=== PATIENT | male | born 2000 | race Caucasian/White ===

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

== ENCOUNTER 2019-01-02 22:33 | Inpatient (IN) ==
[2019-01-02 22:59] LABS: Appearance Urine Clear (Clear); Bilirubin Urine Negative (Negative); Blood Urine Negative (Negative); Color Urine Yellow; Glucose Urine UA Negative (Negative); Ketones Urine Trace (Negative); Leukocyte Esterase Urine Negative (Negative); Nitrite Urine Negative (Negative); Protein Urine Negative (Negative); Specific Gravity Urine 1.027 (1.000-1.030); Urobilinogen Urine Negative (Negative); pH Urine 6.5 (4.5-7.5)
[2019-01-02 23:23] LABS: Amphetamines+Metham, Urine Neg (Neg); Barbiturates, Urine Neg (Neg); Benzodiazepine, Urine Neg (Neg); Cocaine, Urine Neg (Neg); MDMA (Ecstacy), Urine Neg (Neg); Methadone, Urine Neg (Neg); Opiate, Urine Neg (Neg); Phencyclidine, Urine Neg (Neg)
[2019-01-02 23:30] LABS: Basophils # (auto) 0.02 K/uL (0-0.2); Basophils % (auto) 0.2 %; Eosinophils # (auto) 0.14 K/uL (0-0.5); Eosinophils % (auto) 1.7 %; Hematocrit (blood only) 38.9 % (42-52); Hemoglobin 13.8 g/dL (14.0-18.0); Immature Granulocytes # (auto) 0.02 K/uL (0.00-0.02); Immature Granulocytes % (auto) 0.2 %; Lymphocytes # (auto) 2.86 K/uL (1.2-3.4); Mean Corpuscular Hemoglobin 30.3 pg (25-34); Mean Corpuscular Hgb Conc 35.5 g/dL (32-36); Mean Corpuscular Volume 85.5 fL (80-100); Monocytes # (auto) 0.64 K/uL (0.11-0.59); Monocytes % (auto) 7.6 %; Neutrophils # (auto) 4.74 K/uL (1.4-6.5); Neutrophils % (auto) 56.3 %; Platelet Count 272 K/uL (130-400); RDW Coefficient of Variation 12.9 % (11.5-14.5); Red Blood Count 4.55 M/uL (4.7-6.1); White Blood Count 8.42 K/uL (4.8-10.8)
[2019-01-02 23:48] LABS: Albumin Level 3.4 gm/dl (3.4-5.0); BUN Creatinine Ratio 16.8 (10-20); Calcium 8.6 mg/dl (8.5-10.1); Creatinine Clr Calc Pharmacy 178.8 ml/min; Est GFR (Non-African American) 115.6; Potassium 3.4 mmol/L (3.5-5.1)
[2019-01-02 23:58] LABS: Bilirubin,Total 0.2 mg/dl (0.2-1); Globulin 3.5 gm/dl (2.5-4.0); Thyroid Stimulating Hormone 3.99 uIu/ml (0.300-4.500); Total Protein 6.9 gm/dl (6.4-8.2)
[2019-01-03 00:41] LABS: Acetaminophen < 2 ug/ml (10-30); Salicylate < 1.7 mg/dl (2.8-20)
[2019-01-03] MEDS ORDERED: LORazepam 1 MG TAB SL STA (01:23)
--- NOTE | 2019-01-03 05:06 | Emergency Department Note ---
Entered by Lanny Lundberg acting as a scribe for Larisa Boone DO History of Present Illness General Chief complaint: Mental Health Evaluation Stated complaint: MENTAL HEALTH EVAL Time Seen by Provider: 01/03/19 00:17 Source: patient History of Present Illness Onset (ago): hour(s) (several ) Location: head (general ) Severity: similar to prior episodes Pain Consistency: + other (worsening ) Maximum Pain Intensity: 0 Quality: + other (depression) Associated symptoms: + other (positive thoughts of hurting self; positive thoughts of overdosing; negative change in bowel movements; negative change in appetite; negative change in sleep ); no headaches The patient is a 18 year old male with a PMHx of anxiety and depression who presents to the Emergency Room with complaints of worsening depression that began several hours prior to arrival. The patient states that he bought some sleeping pills today as he has been thinking about hurting himself more recently. The patient states that this is similar to prior episodes of thoughts of hurting himself, but states that he has never made any action to hurt himself. He states that he is unsure if he would have taken these sleeping pills tonight, but states that he has had recent thoughts of overdosing. The patient states that he recently told his friends that he was struggling with his symptoms and states that they are concerned about him. He states that he was previously hospitalized for thoughts of getting a firearm from his grandfather's cabin. The patient states that he is currently on Prozac for his anxiety and depression, and states that he believes this is working. The patient denies any changes in dose of his Prozac. He states that he is about 6 months into hormone therapy for transitioning and is doing well with this, and states that he has a good relationship with his family. The patient denies headache, change in bowel movements, change in appetite, and change in sleep. He reports occasional use of alcohol and vapes, but denies use of drugs. Home Medications Home Medications Medication Instructions Recorded Confirmed Type estradiol 0.1 mg TRANSDERMAL 2XWK 07/14/18 01/02/19 History spironolactone 100 mg PO DAILY 07/14/18 01/02/19 History fluoxetine 40 mg PO QAM #30 cap 03/22/19 09/04/19 Rx Allergies Allergy/AdvReac Type Severity Reaction Status Date / Time No Known Allergies Allergy Unverified 07/14/18 13:32 Past Med/Surg History Medical History Anxiety, generalized History of hormone replacement therapy Depression Surgical History History of appendectomy Social History Preferred Language: Irish Communication Ability: Effective Heel Scorer Required: No Beliefs That Will Affect Care: None current occupational status: student Feels Safe at Home: Yes Smoking Status: Current some day smoker Tobacco Type: e-cigarettes ; Review of Systems See HPI for pertinent positives & negatives. and A total of 10 systems reviewed and were otherwise negative Physical Exam Vital Signs Vital Signs - 24 hr 01/02/19 22:35 01/03/19 01:29 Temperature 36.6 C Temperature Source Oral Sepsis Recent Fever Within 48 Hours No Sepsis Action Taken by Nursing No Action Required Pulse Rate 97 H Pulse Rate [Finger] 70 Respiratory Rate 18 20 Respiratory Effort / Characteristics Non-Labored Respiratory Depth Normal Blood Pressure 142/92 H Blood Pressure [Left Arm] 138/78 Blood Pressure Mean 108 Blood Pressure Mean [Left Arm] 98 Blood Pressure Position Sitting Pulse Oximetry 98 100 Oxygen Delivery Method Room Air Room Air GENERAL: alert, well appearing, well nourished, no distress, non-toxic EYE EXAM: normal conjunctiva, PERRL and EOM's grossly intact OROPHARYNX: no exudate, no erythema, lips, buccal mucosa, and tongue normal and mucous membranes are moist NECK: supple, no nuchal rigidity, no adenopathy, non-tender LUNGS: Clear to auscultation. Normal chest wall mechanics, no w/r/r HEART: no murmurs, S1 normal and S2 normal ABDOMEN: abdomen soft, non-tender, normo-active bowel sounds, no masses, no rebound or guarding. BACK: Back is symmetrical on inspection and there is no deformity, no midline tenderness, no CVA tenderness. SKIN: no rashes and no bruising UPPER EXTREMITIES: upper extremities are grossly normal. FROM, nml pulses b/l. LOWER EXTREMITIES: No pitting edema. FROM, nml pulses b/l. NEURO EXAM: Normal sensorium, cranial nerves II-XII grossly intact, normal speech, no gross weakness of arms, no gross weakness of legs. Course 0022: Past medical records reviewed. The patient was evaluated in room A7. A complete history and physical exam was performed. 0401: I checked on the patient and updated him on all results. 0500: 302 signed by myself. 0615: Per Gustavo, the psychiatric pillowcase maker, the patient was accepted at [address] [place] [address]. Administered Medications Discontinued Medications Lorazepam (Ativan) 1 mg SL NOW STA Stop: 01/03/19 01:24 Last Admin: 01/03/19 01:27 Dose: 1 mg Documented by: [id number] Medical Decision Making Differential Diagnosis Differential diagnoses considered include mood disorder, infection, hypoglycemia, electrolyte abnormalities, cardiac sources, intracerebral event, toxicologic, neurologic, as well as others. Medical Records Attestation: I reviewed the patient's medical records. Home Medications Current Medication List: was personally reviewed by me Laboratory Data Attestation: I reviewed the patient's lab results. Result diagrams: 01/02/19 23:17 01/02/19 23:17 Lab Results 01/02/19 01/02/19 01/02/19 Range/Units 22:45 22:45 23:17 WBC 8.42 (4.8-10.8) K/uL RBC 4.55 L (4.7-6.1) M/uL Hgb 13.8 L (14.0-18.0) g/dL Hct 38.9 L (42-52) % MCV 85.5 (80-100) fL MCH 30.3 (25-34) pg MCHC 35.5 (32-36) g/dL RDW Std Deviation 40.0 (36.4-46.3) fL RDW Coeff of Amberly 12.9 (11.5-14.5) % Plt Count 272 (130-400) K/uL MPV 12.0 H (7.4-10.4) fL Immature Gran % (Auto) 0.2 % Neut % (Auto) 56.3 % Lymph % (Auto) 34.0 % [place] % (Auto) 7.6 % Eos % (Auto) 1.7 % Baso % (Auto) 0.2 % Immature Gran # (Auto) 0.02 (0.00-0.02) K/uL Neut # (Auto) 4.74 (1.4-6.5) K/uL Lymph # (Auto) 2.86 (1.2-3.4) K/uL [place] # (Auto) 0.64 H (0.11-0.59) K/uL Eos # (Auto) 0.14 (0-0.5) K/uL Baso # (Auto) 0.02 (0-0.2) K/uL Sodium (136-145) mmol/L Potassium (3.5-5.1) mmol/L Chloride (98-107) mmol/L Carbon Dioxide (21-32) mmol/L Anion Gap (3-11) BUN (7-18) mg/dl Creatinine (0.6-1.4) mg/dl Est Cr Clr Drug Dosing ml/min Est GFR ( Amer) Est GFR (Non-Af Amer) BUN/Creatinine Ratio (10-20) Glucose (70-99) mg/dl Calcium (8.5-10.1) mg/dl Total Bilirubin (0.2-1) mg/dl AST (15-37) U/L ALT (12-78) U/L Alkaline Phosphatase (45-117) U/L Total Protein (6.4-8.2) gm/dl Albumin (3.4-5.0) gm/dl Globulin (2.5-4.0) gm/dl Albumin/Globulin Ratio (0.9-2) TSH (0.300-4.500) uIu/ml Urine Color Yellow Urine Appearance Clear (Clear) Urine pH 6.5 (4.5-7.5) Ur Specific [place] 1.027 (1.000-1.030) Urine Protein Negative (Negative) Urine Glucose (UA) Negative (Negative) Urine Ketones Trace H (Negative) Urine Blood Negative (Negative) Urine Nitrite Negative (Negative) Urine Bilirubin Negative (Negative) Urine Urobilinogen Negative (Negative) Ur Leukocyte Esterase Negative (Negative) Salicylates (2.8-20) mg/dl Urine Opiates Screen Neg (Neg) Ur Methadone, Qual Neg (Neg) Acetaminophen (10-30) ug/ml Urine Barbiturates Neg (Neg) Ur Phencyclidine (PCP) Neg (Neg) U Amphetamin/Meth Scrn Neg (Neg) MDMA (Ecstasy) Screen Neg (Neg) U Benzodiazepines Scrn Neg (Neg) Ur Cocaine Metabolite Neg (Neg) U Marijuana (THC) Screen Neg (Neg) Ethyl Alcohol mg/dL (0-3) mg/dl 01/02/19 01/02/19 01/02/19 Range/Units 23:17 23:17 23:17 WBC (4.8-10.8) K/uL RBC (4.7-6.1) M/uL Hgb (14.0-18.0) g/dL Hct (42-52) % MCV (80-100) fL MCH (25-34) pg MCHC (32-36) g/dL RDW Std Deviation (36.4-46.3) fL RDW Coeff of Amberly (11.5-14.5) % Plt Count (130-400) K/uL MPV (7.4-10.4) fL Immature Gran % (Auto) % Neut % (Auto) % Lymph % (Auto) % [place] % (Auto) % Eos % (Auto) % Baso % (Auto) % Immature Gran # (Auto) (0.00-0.02) K/uL Neut # (Auto) (1.4-6.5) K/uL Lymph # (Auto) (1.2-3.4) K/uL [place] # (Auto) (0.11-0.59) K/uL Eos # (Auto) (0-0.5) K/uL Baso # (Auto) (0-0.2) K/uL Sodium 139 (136-145) mmol/L Potassium 3.4 L (3.5-5.1) mmol/L Chloride 106 (98-107) mmol/L Carbon Dioxide 29 (21-32) mmol/L Anion Gap 4.0 (3-11) BUN 16 (7-18) mg/dl Creatinine 0.95 (0.6-1.4) mg/dl Est Cr Clr Drug Dosing 178.8 ml/min Est GFR ( Amer) 134.0 Est GFR (Non-Af Amer) 115.6 BUN/Creatinine Ratio 16.8 (10-20) Glucose 146 H (70-99) mg/dl Calcium 8.6 (8.5-10.1) mg/dl Total Bilirubin 0.2 (0.2-1) mg/dl AST 16 (15-37) U/L ALT 34 (12-78) U/L Alkaline Phosphatase 66 (45-117) U/L Total Protein 6.9 (6.4-8.2) gm/dl Albumin 3.4 (3.4-5.0) gm/dl Globulin 3.5 (2.5-4.0) gm/dl Albumin/Globulin Ratio 1.0 (0.9-2) TSH 3.990 (0.300-4.500) uIu/ml Urine Color Urine Appearance (Clear) Urine pH (4.5-7.5) Ur Specific [place] (1.000-1.030) Urine Protein (Negative) Urine Glucose (UA) (Negative) Urine Ketones (Negative) Urine Blood (Negative) Urine Nitrite (Negative) Urine Bilirubin (Negative) Urine Urobilinogen (Negative) Ur Leukocyte Esterase (Negative) Salicylates < 1.7 L (2.8-20) mg/dl Urine Opiates Screen (Neg) Ur Methadone, Qual (Neg) Acetaminophen < 2 L (10-30) ug/ml Urine Barbiturates (Neg) Ur Phencyclidine (PCP) (Neg) U Amphetamin/Meth Scrn (Neg) MDMA (Ecstasy) Screen (Neg) U Benzodiazepines Scrn (Neg) Ur Cocaine Metabolite (Neg) U Marijuana (THC) Screen (Neg) Ethyl Alcohol mg/dL < 3.0 (0-3) mg/dl Blood Pressure Blood Pressure Findings: Normal blood pressure MDM Narrative Patient here well-appearing however concerning story for worsening depression and suicidal ideation with plan to overdose. Patient refused to sign voluntary paperwork, 302 petitioning statement originally written by nurse whom he had originally told that he wanted to overdose on sleeping pills as his suicidal act. No hallucinations or paranoia. Patient is going through gender transition. At this time I feel patient does require inpatient psychiatric treatment. 302 signed by myself. Patient admitted to [facility]. Impression & Plan Depression, Suicidal ideations Discharge Plan Visit Data Chief Complaint: Mental Health Evaluation Stated Complaint: MENTAL HEALTH EVAL ED Provider: Larisa Boone Discharge Problem: Depression, Suicidal ideations Patient Disposition: Transfer Behavioral Health Fac Condition: Good Discharge Instructions Interventions: ED Discharge Assessment Last Done: 01/03/19 06:29 The [email or web address]'s documentation has been prepared under my direction and personally reviewed by me in its entirety. I confirm that the note above accurately reflects all work, treatment, procedures, and medical decision making performed by me.
[2019-01-03] MEDS ORDERED: ACETAMINOPHEN 325 MG TAB PO PRN (06:24)
[2019-01-03] MEDS ORDERED: SODIUM CHLORIDE 0.65% NA SOLN 45 ML (OCEAN) PRN (06:24)
[2019-01-03] MEDS ORDERED: ALUMINUM/MAGNESIUM SUSP 30 ML UDC PO PRN (06:24)
[2019-01-03] MEDS ORDERED: MAGNESIUM HYDROXIDE SUSP 30 ML UDC PO PRN (06:24)
[2019-01-03] MEDS ORDERED: BISMUTH SUBSALICYLATE PER ML OMNICELL CHARGE PO PRN (06:24)
[2019-01-03] MEDS ORDERED: FLUOXETINE HCL 20 MG CAP PO SCH (09:00)
[2019-01-03] MEDS: SPIRONOLACTONE 100 MG TAB PO SCH (09:51)
--- NOTE | 2019-01-03 11:32 | History & Physical ---
Date of Service January 03, 2019 Impression / Recommendations Impression 18-year-old male transgender individual transitioning to female who has a history of recurrent depression and generalized anxiety and is admitted on a involuntary commitment after disclosing a plan for suicide to a friend and buying [id number] medication with intent to overdose on it. He was started on fluoxetine 6 months ago when hospitalized here, discharged on 40 mg, but now taking only 20 mg as he thought it caused fatigue. He does feel the medication is helpful and would like to continue with that dose for now. He has not engaged in outpatient services since returning to [email or web address] for the semester, and would benefit from outpatient medication management, therapy, and eating disorder treatment. Inpatient treatment is medically necessary due to the high risk for suicide if discharged prematurely. (1) Suicidal ideations: 01/03 -continue inpatient treatment on an involuntary 302 commitment. -Suicide checks for safety. -Encourage group attendance and participation. -Work on healthy coping skills and discharge safety plan. -Family meeting with parents. Present on Admission?: Yes (2) Depression: 01/03 -continue fluoxetine 20 mg daily, as the patient feels this dose is helpful and is unwilling to take a higher dose or consider different medications at this time. He states that his mood episodes recently have lasted 1-3 days, but if low mood persists, would again revisit the option of medication adjustments. -Refer to [facility] for resumption of outpatient treatment. -Coordinate care with PCP in the [place] area, who has been prescribing medication. Depression Type: unspecified Qualified Code(s): F32.9 - Major depressive disorder, single episode, unspecified Present on Admission?: Yes (3) Anxiety, generalized: 01/03 -see above regarding medications; work on healthy coping skills and behavioral techniques for managing anxiety and refer for outpatient therapy. Present on Admission?: Yes (4) Binge eating disorder: 01/03 -patient identifies his poor body image and weight as primary stressors and triggers for anxiety and depression. He has never had eating disorder treatment, but would benefit from outpatient treatment including working with a steam brush operator and CBT. Explore options for referral, briefly discussed services available at [facility]. He is not interested in anything that involves group therapy. Present on Admission?: Yes (5) History of hormone replacement therapy: 01/03 -get records for prescribing physician to confirm medications and doses Present on Admission?: Yes Inventory Assets Strengths: Supportive friends and family, willing to resume treatment Needs: Eating disorder treatment, and outpatient therapy Risk Factors Assessment Male: Yes : Yes Do You Have Access To A Gun?: No Health Problems: No Mental Health Diagnoses: Yes Substance Use Disorders: No Family History of Suicide: No Previous Psychiatric Hospitalization: Yes Hopelessness: Yes Protective Factors Assessment Faith Beliefs: No : No Responsible for Young Children: No Employed: No Stable Relationships: Yes Supportive Family: Yes Good Rapport with Provider: No Psychiatric History Identifying Data MAXIMINO DILLON is a 18-year-old M transgender to "they" who currently lives in [place], has a history of depression, generalized anxiety disorder, and binge eating disorder, and was admitted on 01/03/19 06:24 on a 302 involuntary commitment for suicidality. Chief Complaint "So been like thinking about suicide". History of Present Illness Patient is known to us from a previous hospitalization on our unit in June of this year, also for suicidal ideation. He was started on fluoxetine, discharged on 40 mg daily, with outpatient treatment at [facility] and therapy at [facility]. He presented to the ER overnight with worsening depression and suicidal ideation. He reported buying a bottle of ZzzQuil yesterday with a plan to overdose on it, but told his friends who intervened, and ultimately contacted police, who brought him into the ER. He reported stressors including body image and transitioning from male to female. He has been on prescription hormone since approximately May from a physician in [place]. He also reported gender dysphoria and unhappiness with his weight. Inpatient treatment was recommended, but he declined, stating his parents would make him dropped out of school if he was hospitalized. He was ultimately admitted on an involuntary commitment. On admission, he was continued on his home medications, fluoxetine 40 mg daily, Spironolactone 100 mg daily, and estradiol patch. This morning he would only take 20 mg of fluoxetine, stating that is all he takes at home. On my assessment, he was seen with Maximino Lucio MS, with his permission. He reports he's been thinking about suicide for the past 3 days and planning to "OD on a bunch of over the counter stuff." He had Ibuprofen, then bought NyQuil, and was planning to buy more medications and overdose today. He told his friend (they h ave a pact to tell each other if they're suicidal), who intervened and removed the meds, then called the hotline, and police brought him in. He remains ambivalent about being alive. His primary stressor is his weight, stating he has gained weight and is "very overweight, poor body image." 6 months ago when admitted he weighed 262lbs, and now weighs 286lbs. He describes losing and then gaining weight repeatedly, and chronic unhappiness with his weight and body. He denies purging. He continues to restrict and then binge, usually once a day (tries to "stave off eating as long as possible, then once I've eaten something, it's ruined, and I eat until I'm uncomfortable"). He did not continue the fluoxetine after he left as he thought it made him tired, so his clinician at [facility] switched him to escitalopram (dose unknown), but it wasn't as effective, so he switched back to fluoxetine 20mg, currently prescribed by his PCP at home ([facility]). He thinks fluoxetine helps but still has times when mood symptoms "build up" and he feels unable to function with SI, hopelessness, bad thoughts. He reports 3 episodes of low mood and hopelessness over the summer that lasted 1-3 days, but was able to "get through it because I don't like being home, wanted to get back to school with friends." Anxiety is ongoing, but improved from the past, "pretty contained," exacerbated by blood draws, and mild anxiety with school. Sleep has been good, 8 hours/day, energy is "usually fine," concentration is "much better than last semester." He thinks he is doing "pretty well" in classes so far. He is taking the minimum credits for FT status, and thinks that's been helpful. He has not spoken to his parents since admission and is reluctant to do so, saying he feels he "messed up in g etting in here," is worried about the cost. He is willing to involve them in treatment. He lists his main stressors as gender dysphoria, my weight, body image. His goal is to lose weight first, and then work on presenting as more feminine. Past Psychiatric History Current Psychiatric Diagnosis: Major Depressive Disorder, LEI Outpatient Services: Was referred to [facility] in 06/2018, but went home to [facility], where he had no treatment, and just returned to [facility] a couple of weeks ago but did not reinitiate treatment. Previous Psych Admissions: Here 06/2018 Do You Have Access To A Gun?: No History of Previous Suicide Attempt: No Past Medication Trials: fluoxetine 40mg - sedating escitalopram dose unknown - ineffective (duration of trial unknown) Allergies Allergy/AdvReac Type Severity Reaction Status Date / Time No Known Allergies Allergy Unverified 07/14/18 13:32 Home Medications Home Medications Medication Instructions Recorded Confirmed Type estradiol 0.1 mg TRANSDERMAL [id number] 07/14/18 01/02/19 History spironolactone 100 mg PO DAILY 07/14/18 01/02/19 History fluoxetine 20 mg PO QAM 01/03/19 01/03/19 History Family History Family History of: Depression Family Mental Health History Comment: Mother: Depression Alcohol History Hx of Alcohol Use Over the Past 12 Months: Yes ("socially") AUDIT Total Score: 2 Drank 3 times in the past week, once to intoxication Smoking Use Have You Smoked or Used Tobacco Products in the Last 30 Days: Yes tobacco type: e-cigarettes Smoking Status: Current some day smoker Substance History Hx of Prescription Med Misuse Over the Past 12 Months: No Hx of Over the Counter Med Misuse Over the Past 12 Months: No Hx of Inhalent Misuse Over the Past 12 Months: No Hx of Organic Substance Use Over the Past 12 Months: No Hx of Illegal Substances/Street Drug Use Over Past 12 Months: No Problems as a Result of Past Substance Use: None Identified Personal History Living Arrangements: Dorm Living Arrangements Comments: lives alone in dorms Childhood: Grew up outside [place], parents still live there Highest Grade Completed: Some College Highest Grade Completed Comment: sophomore at [employer], majoring in biology and chemistry, thinking about food science Employment Status: Student Marital Status: Single Number Of Children: o Beliefs That Will Affect Care: None Hx Legal Problems: No Hx Traumatic Life Events: No Patient History Medical History Anxiety, generalized History of hormone replacement therapy Depression Surgical History History of appendectomy Social History Preferred Language: Maori Communication Ability: Effective 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 Required: No Beliefs That Will Affect Care: None current occupational status: student Feels Safe at Home: Yes Smoking Status: Current some day smoker Tobacco Type: e-cigarettes ; Review of Systems Review of Systems: All systems reviewed & are unremarkable except as noted in HPI & below weight gain Physical Exam Psychiatric: Orientation: alert and cooperative Apperance: appropriately dressed, appropriately groomed and appeared stated age Eye Contact: + fair eye contact Motor Behavior: steady gait and station and no abnormal motor movements Speech: normal rate/rhythm/volume of speech Affect: + depressed affect and + anxious affect Mood: + depressed mood and + anxious mood Thought Process: goal directed thought process Thought Content: reality based without delusions Suicidal Thoughts: + reports suicidal thoughts Homicidal Thoughts: denies homicidal thoughts Hallucinations: no auditory hallucinations Cognition: recent memory grossly intact, attention grossly intact and language grossly intact Insight: + fair insight Judgement: + fair judgement Vital Signs (Past 24 Hours): Last Vital Signs Temp 36.5 C 01/03/19 06:52 Pulse 70 01/03/19 01:29 Resp 19 01/03/19 06:52 BP 118/78 01/03/19 06:52 Pulse Ox 100 01/03/19 01:29 Exam Statement: A physical exam was performed in the ER prior to admission to the unit by Dr. Larisa Boone. I accept that physical as correct/medical clearance for the inpatient physical exam. Results & Data Laboratory Results Laboratory Results - last 24 hr 01/02/19 01/02/19 01/02/19 22:45 22:45 23:17 WBC 8.42 RBC 4.55 L Hgb 13.8 L Hct 38.9 L MCV 85.5 MCH 30.3 MCHC 35.5 RDW Std Deviation 40.0 RDW Coeff of Amberly 12.9 Plt Count 272 MPV 12.0 H Immature Gran % (Auto) 0.2 Neut % (Auto) 56.3 Lymph % (Auto) 34.0 Ashe % (Auto) 7.6 Eos % (Auto) 1.7 Baso % (Auto) 0.2 Immature Gran # (Auto) 0.02 Neut # (Auto) 4.74 Lymph # (Auto) 2.86 Ashe # (Auto) 0.64 H Eos # (Auto) 0.14 Baso # (Auto) 0.02 Sodium Potassium Chloride Carbon Dioxide Anion Gap BUN Creatinine Est Cr Clr Drug Dosing Est GFR ( Amer) Est GFR (Non-Af Amer) BUN/Creatinine Ratio Glucose Calcium Total Bilirubin AST ALT Alkaline Phosphatase Total Protein Albumin Globulin Albumin/Globulin Ratio TSH Urine Color Yellow Urine Appearance Clear Urine pH 6.5 Ur Specific Paradox 1.027 Urine Protein Negative Urine Glucose (UA) Negative Urine Ketones Trace H Urine Blood Negative Urine Nitrite Negative Urine Bilirubin Negative Urine Urobilinogen Negative Ur Leukocyte Esterase Negative Salicylates Urine Opiates Screen Neg Ur Methadone, Qual Neg Acetaminophen Urine Barbiturates Neg Ur Phencyclidine (PCP) Neg U Amphetamin/Meth Scrn Neg MDMA (Ecstasy) Screen Neg U Benzodiazepines Scrn Neg Ur Cocaine Metabolite Neg U Marijuana (THC) Screen Neg Ethyl Alcohol mg/dL 01/02/19 01/02/19 01/02/19 23:17 23:17 23:17 WBC RBC Hgb Hct MCV MCH MCHC RDW Std Deviation RDW Coeff of Amberly Plt Count MPV Immature Gran % (Auto) Neut % (Auto) Lymph % (Auto) Ashe % (Auto) Eos % (Auto) Baso % (Auto) Immature Gran # (Auto) Neut # (Auto) Lymph # (Auto) Ashe # (Auto) Eos # (Auto) Baso # (Auto) Sodium 139 Potassium 3.4 L Chloride 106 Carbon Dioxide 29 Anion Gap 4.0 BUN 16 Creatinine 0.95 Est Cr Clr Drug Dosing 178.8 Est GFR ( Amer) 134.0 Est GFR (Non-Af Amer) 115.6 BUN/Creatinine Ratio 16.8 Glucose 146 H Calcium 8.6 Total Bilirubin 0.2 AST 16 ALT 34 Alkaline Phosphatase 66 Total Protein 6.9 Albumin 3.4 Globulin 3.5 Albumin/Globulin Ratio 1.0 TSH 3.990 Urine Color Urine Appearance Urine pH Ur Specific Paradox Urine Protein Urine Glucose (UA) Urine Ketones Urine Blood Urine Nitrite Urine Bilirubin Urine Urobilinogen Ur Leukocyte Esterase Salicylates < 1.7 L Urine Opiates Screen Ur Methadone, Qual Acetaminophen < 2 L Urine Barbiturates Ur Phencyclidine (PCP) U Amphetamin/Meth Scrn MDMA (Ecstasy) Screen U Benzodiazepines Scrn Ur Cocaine Metabolite U Marijuana (THC) Screen Ethyl Alcohol mg/dL < 3.0 Current Inpatient Medications Current Inpatient Medications: Current Inpatient Medications Acetaminophen (Tylenol) 650 mg PO Q4H PRN PRN Reason: Headache or Minor Fever Stop: 02/02/19 06:23 Al Hydrox/Mg Hydrox/Simethicone (Maalox) 30 ml PO Q4H PRN PRN Reason: GI Upset Stop: 02/02/19 06:23 Bismuth Subsalicylate (Kaopectate) 15 ml PO PRN PRN PRN Reason: Loose Stool Stop: 02/02/19 06:23 Estradiol (Estradiol) 0.1 mg TD WeSa@0900 ON LICENSE OF [facility] Stop: 02/04/19 08:59 Fluoxetine HCl (Prozac) 40 mg PO QAM ON LICENSE OF [facility] Stop: 02/02/19 08:59 Last Admin: 01/03/19 09:51 Dose: 20 mg Documented by: Hydroxyzine HCl (Vistaril) 50 mg PO HSZ PRN PRN Reason: Insomnia Stop: 02/02/19 06:23 Hydroxyzine HCl (Vistaril) 25 mg PO Q4H PRN PRN Reason: Anxiety Stop: 02/02/19 06:23 Magnesium Hydroxide (Milk Of Magnesia) 30 ml PO DAILY PRN PRN Reason: Constipation Stop: 02/02/19 06:23 Sodium Chloride (Wrens Nasal) 1 - 2 sprays NA PRN PRN PRN Reason: Nasal Dryness/Congestion Stop: 02/02/19 06:23 Spironolactone (Aldactone) 100 mg PO QAM ON LICENSE OF [facility] Stop: 02/02/19 08:59 Last Admin: 01/03/19 09:51 Dose: 100 mg Documented by: CPT Code CPT Code Initial Hospital Care: 17116
[2019-01-04] MEDS: FLUOXETINE HCL 20 MG CAP PO SCH (09:23)
[2019-01-04] MEDS: SPIRONOLACTONE 100 MG TAB PO SCH (09:23)
--- NOTE | 2019-01-04 15:10 | Psychiatric Progress Note ---
Date of Service January 04, 2019 Impression / Recommendations Impression 18-year-old male transgender individual transitioning to female who has a history of recurrent depression and generalized anxiety and is admitted on a involuntary commitment after disclosing a plan for suicide to a friend and buying czkv-gyp-hwginfr medication with intent to overdose on it. He was started on fluoxetine 6 months ago when hospitalized here, discharged on 40 mg, but now taking only 20 mg as he thought it caused fatigue. He does feel the medication is helpful and would like to continue with that dose for now. He has not engaged in outpatient services since returning to [employer] for the semester, and would benefit from outpatient medication management, therapy, and eating disorder treatment. Inpatient treatment is medically necessary due to the high risk for suicide if discharged prematurely. Today, the patient reports that his mood has improved. He clarifies that he was not actively suicidal at admission, although he admits that he had been purchasing quantities of xflp-xsu-ymfqyyl medications, with a plan to possibly by more, in anticipation of active suicidality. His explanation is that, as an agnostic, he does not believe in heaven or hell and expects that is e quivalent to "nothingness." At the same time, the patient says that he experiences a great deal of intrapsychic distress and pain, and sometimes fantasizes about relieving himself of that pain through . At the same time, he is able to circumscribe the current circumstances in terms of "it is a bad time. I know it will get better." Today, he is able to identify a number of current personal enjoys, and also identifies anticipated pleasures and reasons to live in the future. He notes that he is not currently having suicidal thoughts. (1) Suicidal ideations: 01/03 -continue inpatient treatment on an involuntary 302 commitment. -Suicide checks for safety. -Encourage group attendance and participation. -Work on healthy coping skills and discharge safety plan. -Family meeting with parents. 01/04 -Patient is continuing to work in groups on developing more healthy coping skills and a discharge safety plan. -Today, he notes that he did exercise his safety plan by contacting his friend to report that he was having thoughts of suicide. -The patient is in the process of transitioning from male to female and is understandably experiencing certain emotional upheavals within this context. -Today, during the encounter, the patient developed a list of joys and reasons to live. These included the fellowship of his friends, his hope to develop a meaningful and rewarding career, and the hope of eventually developing a stable, supportive romantic relationship. (2) Depression: 01/03 -continue fluoxetine 20 mg daily, as the patient feels this dose is helpful and is unwilling to take a higher dose or consider different medications at this time. He states that his mood episodes recently have lasted 1-3 days, but if low mood persists, would again revisit the option of medication adjustments. -Refer to [facility] for resumption of outpatient treatment. -Coordinate care with PCP in the [place] area, who has been prescribing medication. 01/04 -The patient's concern with psychiatric medications is that they may cause further weight gain and the patient identifies negative body image and obesity as being significant concerns that he feels partially under pens his depression. -The patient identifies been cheating as possibly a coping strategy, and notes that he often eats will be on the point of satiety. He also compensates for binge eating at times by fasting, and notes that his weight has fluctuated over the past few years from as low as 190 pounds up to 280 pounds. We discussed the possibility of medications for binge eating disorder. (3) Anxiety, generalized: 01/03 -see above regarding medications; work on healthy coping skills and behavioral techniques for managing anxiety and refer for outpatient therapy. 01/04 -Today the patient notes that he feels that Prozac has helped with his anxiety. Nevertheless, he is experiencing significant anxiety within the context of his process of transitioning from male to female. (4) Binge eating disorder: 01/03 -patient identifies his poor body image and weight as primary stressors and triggers for anxiety and depression. He has never had eating disorder treatment, but would benefit from outpatient treatment including working with a driller and broacher and CBT. Explore options for referral, briefly discussed services available at [facility]. He is not interested in anything that involves group therapy. 01/04 -We discussed strategies for treating binge eating disorder. He has not tried stimulant medications, and it was suggested that he may consider discussing this further with his outpatient provider. (5) History of hormone replacement therapy: 01/03 -get records for prescribing physician to confirm medications and doses Inventory Assets Strengths: Supportive friends and family, willing to resume treatment Needs: Eating disorder treatment, and outpatient therapy Risk Factors Assessment Male: Yes : Yes Do You Have Access To A Gun?: No Health Problems: No Mental Health Diagnoses: Yes Substance Use Disorders: No Family History of Suicide: No Previous Psychiatric Hospitalization: Yes Hopelessness: Yes Protective Factors Assessment Mosque Beliefs: No : No Responsible for Young Children: No Employed: No Stable Relationships: Yes Supportive Family: Yes Good Rapport with Provider: No Interval History Chief Complaint "I was thinking of overdosing on xxii-lxi-qywdbua medicaitons". Review of Systems Sleep Information Total Hours of Sleep: 5.5 Sleep Comments: recieved an hs dose of vistaril at hs-appeared to be asleep on 0030 rounds. Meal Information Percent Meal Consumed - Breakfast: 0 Percent Meal Consumed - Lunch: 0 Percent Meal Consumed - Dinner: 100 Nutrition Comment: poor appetite Subjective Subjective Patient was seen & assessed and interval progress reviewed with treatment team. I met with the patient individually in order to assess his current mental status, evaluate his response to treatment, coordinate any necessary changes in the patient's treatment regimen with the patient, and address issues and concerns that may arise. The patient explains that he had been thinking of taking a deliberate overdose of oham-xwp-yidzzbm medications in order to commit suicide. He notes that he had bought a supply of a certain cold remedy, but knew that it was not a a sufficient quantity to result in . The patient reports that his thoughts of suicide abated, but he decided that should they return he would go and buy an additional supply of forn-tra-ngrohaj medications to stockpile, and should the thoughts return with suicidal intent he would then by still more ekox-ibz-qqzdulo medicines and overdose. He tells me that he has been distressed about the fact that he gained a significant amount of weight over the summer [place] [facility] [place]. The patient tells me that the combination of negative body image and what he refers to is "gender dysphoria" have collectively resulted in significant intrapsychic distress. He reports that he plans to transition from male to female, and sometimes refers to himself as "non-binary," but is willing to accept male pronouns for the time being. He adds that he does not feel prepared to start coming out as a woman while still obese. He describes binge eating, and says he has a long pattern of not being able to stop eating well beyond the point of satiety once he starts eating. Today, the patient tells me that his thoughts of suicide have resolved. He also points out that he did exercise his safety plan by telling his friend that he was thinking of suicide. He and the friend have a "pack" to tell his other if there is suicidal, and each has the responsibility of detecting the other from acting on the suicidal thoughts. In this case, the patient's friend responded by contacting a crisis hotline and police responded to the patient's dormitory. He says that he is not feeling acutely suicidal, and was not feeling acutely suicidal at the time, but understands that the goal of the hospitalization is to assure his safety evaluate him further. The gwyn ent tells us that he has been adherent with his outpatient medications. Physical Exam Psychiatric Orientation: alert and oriented x 3 Apperance: appropriately dressed and appropriately groomed Eye Contact: + fair eye contact The patient fidgets frequently in his chair and appears to be somewhat restless. Speech: normal rate/rhythm/volume of speech Affect: euthymic affect I met an okay mood. I am just eager to be discharged. I do not want to miss any more classes. Thought Process: goal directed thought process and linear/logical thought p rocess Thought Content: reality based without delusions and + self deprecation Suicidal Thoughts: denies suicidal thoughts The patient acknowledges that he was having thoughts of suicide prior to admission. Although he had started to secure a supply of fyga-qev-ocsbohl medicines that he could use for an overdose should he decide to act, he also reports that he did not have suicidal intent and, instead, wanted to "be prepared" in case active suicidality emerged. Homicidal Thoughts: denies homicidal thoughts Hallucinations: no auditory hallucinations Cognition: recent memory grossly intact, remote memory grossly intact, attention grossly intact and language grossly intact Estimated Intelligence: + above average estimated intelligence Insight: + fair insight Judgement: + fair judgement Vital Signs (Past 24 Hours) Last Vital Signs Temp 36.3 C L 01/04/19 06:45 Pulse 86 01/04/19 06:46 Resp 20 01/04/19 06:45 BP 132/83 01/04/19 06:46 Pulse Ox 100 01/03/19 01:29 Results & Data Current Inpatient Medications Current Inpatient Medications: Current Inpatient Medications Acetaminophen (Tylenol) 650 mg PO Q4H PRN PRN Reason: Headache or Minor Fever Stop: 02/02/19 06:23 Al Hydrox/Mg Hydrox/Simethicone (Maalox) 30 ml PO Q4H PRN PRN Reason: GI Upset Stop: 02/02/19 06:23 Bismuth Subsalicylate (Kaopectate) 15 ml PO PRN PRN PRN Reason: Loose Stool Stop: 02/02/19 06:23 Estradiol (Estradiol) 0.1 mg TD WeSa@0900 [facility] Stop: 02/04/19 08:59 Fluoxetine HCl (Prozac) 20 mg PO QAM [facility] Stop: 02/03/19 08:59 Last Admin: 01/04/19 09:23 Dose: 20 mg Documented by: Hydroxyzine HCl (Vistaril) 50 mg PO HSZ PRN PRN Reason: Insomnia Stop: 02/02/19 06:23 Last Admin: 01/03/19 23:34 Dose: 50 mg Documented by: Hydroxyzine HCl (Vistaril) 25 mg PO Q4H PRN PRN Reason: Anxiety Stop: 02/02/19 06:23 Magnesium Hydroxide (Milk Of Magnesia) 30 ml PO DAILY PRN PRN Reason: Constipation Stop: 02/02/19 06:23 Sodium Chloride ([place] Nasal) 1 - 2 sprays NA PRN PRN PRN Reason: Nasal Dryness/Congestion Stop: 02/02/19 06:23 Spironolactone (Aldactone) 100 mg PO QAM [facility] Stop: 02/02/19 08:59 Last Admin: 01/04/19 09:23 Dose: 100 mg Documented by: Mental Health & Subst Abuse Tx Psychiatrist Name of Psychiatrist: Jeannine Bravo Psychiatrist's Date of Appointment with Psychiatrist: 01/17/19 Time of Appointment with Psychiatrist: 9:00 a.m. Psychiatric Appointment Comment: [address] [facility], [place] Therapist Name of Therapist: Chery Bush Therapist's Time of Therapist Appointment: Will contact you post discharge to schedule Therapy Appointment Comment: [address] [facility], [address], [place] Sponge Packer Name of Sponge Packer: Student Care and Advocacy - Marissa Phone Number for Sponge Packer: [phone] Date of Appointment with Sponge Packer: 01/10/19 Time of Appointment with Sponge Packer: 11:00 a.m. Case Management Appointment Comment: [address] Post Discharge Appointments Primary Care Physician Name Of Family Doctor: [facility] Time of Appointment with PCP: Follow up as regularly scheduled Provider Appointment Comment: [address] [facility], [address], [place] [address] Contact Information Discharge Discharge Address: [address] [place] [address] CPT Code CPT Code 93690 (1) Depression Depression Type: unspecified Qualified Code(s): F32.9 - Major depressive disorder, single episode, unspecified
[2019-01-05] MEDS ORDERED: ESTRADIOL TRANSDERMAL SYSTEM 0.1 MG TDSY TD SCH (09:00)
[2019-01-05] MEDS: SPIRONOLACTONE 100 MG TAB PO SCH (09:21)
[2019-01-05] MEDS: FLUOXETINE HCL 20 MG CAP PO SCH (09:22)
--- NOTE | 2019-01-05 19:36 | Psychiatric Progress Note ---
Date of Service January 05, 2019 Impression / Recommendations Impression 18-year-old male transgender individual transitioning to female who has a history of recurrent depression and generalized anxiety and is admitted on a involuntary commitment after disclosing a plan for suicide to a friend and buying wrzf-ewh-wuqqocb medication with intent to overdose on it. He was started on fluoxetine 6 months ago when hospitalized here, discharged on 40 mg, but now taking only 20 mg as he thought it caused fatigue. He does feel the medication is helpful and would like to continue with that dose for now. He has not engaged in outpatient services since returning to [employer] for the semester, and would benefit from outpatient medication management, therapy, and eating disorder treatment. Inpatient treatment is medically necessary due to the high risk for suicide if discharged prematurely. Pt is improving in mood and presentation and engagement, PT talking about body image and eating disorder concerns despite shame involved and open to engaging in treatment to address ED. Pt open to retrial of 40mg of Prozac with moving to bedtime for now to try to minimize possible fatigue now that pt been on Prozac for some time and might tolerate that dose much smoother then 40mg in first week on it. (1) Suicidal ideations: 01/03 -continue inpatient treatment on an involuntary 302 commitment. -Suicide checks for safety. -Encourage group attendance and participation. -Work on healthy coping skills and discharge safety plan. -Family meeting with parents. 01/04 -Patient is continuing to work in groups on developing more healthy coping sk ills and a discharge safety plan. -Today, he notes that he did exercise his safety plan by contacting his friend to report that he was having thoughts of suicide. -The patient is in the process of transitioning from male to female and is understandably experiencing certain emotional upheavals within this context. -Today, during the encounter, the patient developed a list of joys and reasons to live. These included the fellowship of his friends, his hope to develop a meaningful and rewarding career, and the hope of eventually developing a stable, supportive romantic relationship. (2) Depression: 01/03 -continue fluoxetine 20 mg daily, as the patient feels this dose is helpful and is unwilling to take a higher dose or consider different medications at this time. He states that his mood episodes recently have lasted 1-3 days, but if low mood persists, would again revisit the option of medication adjustments. -Refer to [facility] for resumption of outpatient treatment. -Coordinate care with PCP in the [place] area, who has been prescribing medication. 01/04 -The patient's concern with psychiatric medications is that they may cause further weight gain and the patient identifies negative body image and obesity as being significant concerns that he feels partially under pens his depression. -The patient identifies been cheating as possibly a coping strategy, and notes that he often eats will be on the point of satiety. He also compensates for binge eating at times by fasting, and notes that his weight has fluctuated over the past few years from as low as 190 pounds up to 280 pounds. We discussed the possibility of medications for binge eating disorder. 01/05 raised prozac to 40mg hs (with 01/05 dose to be 20mg am and 20mg hs ) (3) Anxiety, generalized: 01/03 -see above regarding medications; work on healthy coping skills and behavioral techniques for managing anxiety and refer for outpatient therapy. 01/04 -Today the patient notes that he feels that Prozac has helped with his anxiety. Nevertheless, he is experiencing significant anxiety within the context of his process of transitioning from male to female. 01/05 as above prozac dose raised (4) Binge eating disorder: 01/03 -patient identifies his poor body image and weight as primary s tressors and triggers for anxiety and depression. He has never had eating disorder treatment, but would benefit from outpatient treatment including working with a lighting director and CBT. Explore options for referral, briefly discussed services available at [facility]. He is not interested in anything that involves group therapy. 01/04 -We discussed strategies for treating binge eating disorder. He has not tried stimulant medications, and it was suggested that he may consider discussing this further with his outpatient provider. 01/05 raised prozac to 40mg a day with prozac can help minimize binge cravings and behaviors nasir at higher doses reviewed options of other medications for BED that can consider in future with outpt provider as needed encouraged HEALS program at [facility] as part of aftercare encouraged structured eating and lighting director appts (as part of HEALS) and encouraged pulling out of restricting behaviors to help minimize binge eating (5) History of hormone replacement therapy: 01/03 -get records for prescribing physician to confirm medications and doses Inventory Assets Strengths: Supportive friends and family, willing to resume treatment Needs: Eating disorder treatment, and outpatient therapy Risk Factors Assessment Male: Yes : Yes Do You Have Access To A Gun?: No Health Problems: No Mental Health Diagnoses: Yes Substance Use Disorders: No Family History of Suicide: No Previous Psychiatric Hospitalization: Yes Hopelessness: Yes Protective Factors Assessment Catholic Beliefs: No : No Responsible for Young Children: No Employed: No Stable Relationships: Yes Supportive Family: Yes Good Rapport with Provider: No Interval History Chief Complaint doing ok, not having SI. Review of Systems Sleep Information Total Hours of Sleep: 7 Sleep Comments: requested and received an hs prn dose of vistaril for sleep aid Meal Information Percent Meal Consumed - Breakfast: 100 Percent Meal Consumed - Lunch: 100 Percent Meal Consumed - Dinner: 100 Nutrition Comment: documented from the pt. meal record Subjective Subjective denied SI, pt shared about the shame and negative body image patient deals with, struggles with fears of uncontrolled eating leading to binging and grazing in how eats with tendency to restrict eating and then binge eats very frequently. denied SI, shared how prozac has lowered anxiety but not resolved anxiety concerns. depression concerns improved some with prozac as well but ongoing. pt hesitant to attend group therapy given shame has , more comfortable talking about depression and anxiety then Gender identity and body image and eating d isorder concerns. Pt did talk to SW about seeking treatment fo ED concerns though and seems open to seeing about heal program. When first rx'd prozac got to 40mg in first week on medication and felt it brought out fatigue that did not not ice once lowered to 40mg a day. Pt deneid other s/e to prozac then or now. Physical Exam Psychiatric Orientation: alert, oriented x 3 and cooperative Apperance: appropriately dressed, appropriately groomed and appeared stated age Eye Contact: good eye contact Motor Behavior: steady gait and station Speech: normal rate/rhythm/volume of speech Affect: mood congruent with affect "improving" Thought Process: goal directed thought process and linear/logical thought process Thought Content: reality based without delusions Suicidal Thoughts: denies suicidal thoughts Homicidal Thoughts: denies homicidal thoughts Hallucinations: no auditory hallucinations Cognition: recent memory grossly intact, remote memory grossly intact, attention grossly intact and language grossly intact Estimated Intelligence: + above average estimated intelligence Insight: + fair insight Judgement: + fair judgement Vital Signs (Past 24 Hours) Last Vital Signs Temp 36.5 C 01/05/19 06:30 Pulse 65 01/05/19 06:30 Resp 18 01/05/19 06:30 BP 118/77 01/05/19 06:30 Pulse Ox 100 01/03/19 01:29 Results & Data Current Inpatient Medications Current Inpatient Medications: Current Inpatient Medications Acetaminophen (Tylenol) 650 mg PO Q4H PRN PRN Reason: Headache or Minor Fever Stop: 02/02/19 06:23 Al Hydrox/Mg Hydrox/Simethicone (Maalox) 30 ml PO Q4H PRN PRN Reason: GI Upset Stop: 02/02/19 06:23 Bismuth Subsalicylate (Kaopectate) 15 ml PO PRN PRN PRN Reason: Loose Stool Stop: 02/02/19 06:23 Estradiol (Estradiol) 0.1 mg TD WeSa@0900 [facility] Stop: 02/04/19 08:59 Last Admin: 01/05/19 09:22 Dose: 0.1 mg Documented by: Fluoxetine HCl (Prozac) 20 mg PO HS [facility] Stop: 02/05/19 21:59 Fluoxetine HCl (Prozac) 20 mg PO HS ONE Stop: 01/05/19 22:01 Hydroxyzine HCl (Vistaril) 50 mg PO HSZ PRN PRN Reason: Insomnia Stop: 02/02/19 06:23 Last Admin: 01/04/19 22:42 Dose: 50 mg Documented by: Hydroxyzine HCl (Vistaril) 25 mg PO Q4H PRN PRN Reason: Anxiety Stop: 02/02/19 06:23 Magnesium Hydroxide (Milk Of Magnesia) 30 ml PO DAILY PRN PRN Reason: Constipation Stop: 02/02/19 06:23 Sodium Chloride ([place] Nasal) 1 - 2 sprays NA PRN PRN PRN Reason: Nasal Dryness/Congestion Stop: 02/02/19 06:23 Spironolactone (Aldactone) 100 mg PO QAM [facility] Stop: 02/02/19 08:59 Last Admin: 01/05/19 09:21 Dose: 100 mg Documented by: Mental Health & Subst Abuse Tx Psychiatrist Name of Psychiatrist: Jeannine Bravo Psychiatrist's Date of Appointment with Psychiatrist: 01/17/19 Time of Appointment with Psychiatrist: 9:00 a.m. Psychiatric Appointment Comment: [address] [facility], [place], [place] Therapist Name of Therapist: Chery Bush Therapist's Time of Therapist Appointment: Will contact you post discharge to schedule Therapy Appointment Comment: [address] [facility], [address], [place] Sprue Knocker Name of Sprue Knocker: Student Care and Advocacy - Marissa Phone Number for Sprue Knocker: [phone] Date of Appointment with Sprue Knocker: 01/10/19 Time of Appointment with Sprue Knocker: 11:00 a.m. Case Management Appointment Comment: [address] [facility] Post Discharge Appointments Primary Care Physician Name Of Family Doctor: [facility] Time of Appointment with PCP: Follow up as regularly scheduled Provider Appointment Comment: [address] [facility], [address], [place] [address] Contact Information Discharge Discharge Address: [address] [place] [address] CPT Code CPT Code 80305 [id number] (1) Depression Depression Type: unspecified Qualified Code(s): F32.9 - Major depressive disorder, single episode, unspecified
[2019-01-05] MEDS ORDERED: FLUOXETINE HCL 20 MG CAP PO ONE (22:00)
[2019-01-06] MEDS: SPIRONOLACTONE 100 MG TAB PO SCH (08:49)
--- NOTE | 2019-01-06 10:58 | Discharge Summary ---
Date of Service January 06, 2019 History of Present Illness Patient is known to us from a previous hospitalization on our unit in June of this year, also for suicidal ideation. He was started on fluoxetine, discharged on 40 mg daily, with outpatient treatment at [facility] and therapy at [facility]. He presented to the ER overnight with worsening depression and suicidal ideation. He reported buying a bottle of ZzzQuil yesterday with a plan to overdose on it, but told his friends who intervened, and ultimately contacted police, who brought him into the ER. He reported stressors including body image and transitioning from male to female. He has been on prescription hormone since approximately May from a physician in [place]. He also reported gender dysphoria and unhappiness with his weight. Inpatient treatment was recommended, but he declined, stating his parents would make him dropped out of school if he was hospitalized. He was ultimately admitted on an involuntary commitment. On admission, he was continued on his home medications, fluoxetine 40 mg daily, Spironolactone 100 mg daily, and estradiol patch. This morning he would only take 20 mg of fluoxetine, stating that is all he takes at home. On my assessment, he was seen with Karthik Lucio MS, with his permission. He reports he's been thinking about suicide for the past 3 days and planning to "OD on a bunch of over the counter stuff." He had Ibuprofen, then bought NyQuil, and was planning to buy more medications and overdose today. He told his friend (they have a pact to tell each other if they're suicidal), who intervened and removed the meds, then called the hotline, and police brought him in. He remains ambivalent about being alive. His primary stressor is his weight, stating he has gained weight and is "very overweight, poor body image." 6 months ago when admitted he weighed 262lbs, and now weighs 286lbs. He describes losing and then gaining weight repeatedly, and chronic unhappiness with his weight and body. He denies purging. He continues to restrict and then binge, usually once a day (tries to "stave off eating as long as possible, then once I've eaten something, it's ruined, and I eat until I'm uncomfortable"). He did not continue the fluoxetine after he left as he thought it made him tired, so his clinician at [facility] switched him to escitalopram (dose unknown), but it wasn't as effective, so he switched back to fluoxetine 20mg, currently prescribed by his PCP at home ([facility]). He thinks fluoxetine helps but still has times when mood symptoms "build up" and he feels unable to function with SI, hopelessness, bad thoughts. He reports 3 episodes of low mood and hopelessness over the summer that lasted 1-3 days, but was able to "get through it because I don't like being home, wanted to get back to school with friends." Anxiety is ongoing, but improved from the past, "pretty contained," exacerbated by blood draws, and mild anxiety with school. Sleep has been good, 8 hours/day, energy is "usually fine," concentration is "much better than last semester." He thinks he is doing "pretty well" in classes so far. He is taking the minimum credits for FT status, and thinks that's been helpful. He has not spoken to his parents since admission and is reluctant to do so, saying he feels he "messed up in getting in here," is worried about the cost. He is willing to involve them in treatment. He lists his main stressors as gender dysphoria, my weight, body image. His goal is to lose weight first, and then work on presenting as more feminine. Physical Exam Psychiatric Orientation: alert, oriented x 3 and cooperative Apperance: appropriately dressed, appropriately groomed and appeared stated age Eye Contact: good eye contact Motor Behavior: steady gait and station and no abnormal motor movements Speech: normal rate/rhythm/volume of speech Affect: euthymic affect and mood congruent with affect good mood Thought Process: goal directed thought process and linear/logical thought process Thought Content: reality based without delusions Suicidal Thoughts: denies suicidal thoughts Homicidal Thoughts: denies homicidal thoughts Hallucinations: no auditory hallucinations Cognition: recent memory grossly intact, remote memory grossly intact, attention grossly intact and language grossly intact Estimated Intelligence: + above average estimated intelligence insight improved and appropriate judgment improved and appropriate Vital Signs (Past 24 Hours) Last Vital Signs Temp 36.4 C L 01/06/19 06:30 Pulse 72 01/06/19 06:30 Resp 18 01/06/19 06:30 BP 106/59 L 01/06/19 06:30 Pulse Ox 100 01/03/19 01:29 Principal Diagnosis Major Depressive Disorder, Recurrent, Severe Psychiatric Data Day of Discharge Assessment Patient in good spirits, not tired, denied any suicidal thinking, with decreased sense of shame and more comfortable with plan to address patient's eating disorder and body image concerns. Karthik spoke about longstanding tendency to not feel comfortable with self or body and how this ties into the gender identity disorder concerns but also the eating disorder. Karthik reports out of control eating including binge eating since high school if not also in middle school and how can restrict eating to try to handle this and try to loss weight and/or undo the binge eating. Shared how even when lost wt down in past still felt uncomfortable in own skin and poor body image. Pt wanting to address the eating and the emotional aspects tied to this and interested in engaging with HEALS at [facility] with a referral placed Karthik also interested continuing Prozac now at 40mg Hs to target anxiety, depression, and binge eating symptoms and to follow up with providers including at [facility] and psychotherapist. Karthik plans to make appt with therapist. Karthik is seeking discharge at this time and reports comfort with following safety plan and reaching out as needed. Transition of Care Transition Of Care Record: was reviewed with the patient Advance Directives Advance Directives Information Provided: Yes Advance Directives: No Mental Health Advance Directive: No Advance Directives on File: No Living Will: No Power of Carpet Floor Layer Apprentice: No Advance Directives Reason:: Declines as Mental Health Visit. Risk Factors Assessment Male: Yes : Yes Do You Have Access To A Gun?: No Health Problems: No Mental Health Diagnoses: Yes Substance Use Disorders: No Family History of Suicide: No Previous Psychiatric Hospitalization: Yes Hopelessness: Yes Protective Factors Assessment Buddhism Beliefs: No : No Responsible for Young Children: No Employed: No Stable Relationships: Yes Supportive Family: Yes Good Rapport with Provider: No Discharge Data Lab Results 01/02/19 01/02/19 01/02/19 22:45 22:45 23:17 WBC 8.42 RBC 4.55 L Hgb 13.8 L Hct 38.9 L MCV 85.5 MCH 30.3 MCHC 35.5 RDW Std Deviation 40.0 RDW Coeff of Amberly 12.9 Plt Count 272 MPV 12.0 H Immature Gran % (Auto) 0.2 Neut % (Auto) 56.3 Lymph % (Auto) 34.0 [place] % (Auto) 7.6 Eos % (Auto) 1.7 Baso % (Auto) 0.2 Immature Gran # (Auto) 0.02 Neut # (Auto) 4.74 Lymph # (Auto) 2.86 [place] # (Auto) 0.64 H Eos # (Auto) 0.14 Baso # (Auto) 0.02 Sodium Potassium Chloride Carbon Dioxide Anion Gap BUN Creatinine Est Cr Clr Drug Dosing Est GFR ( Amer) Est GFR (Non-Af Amer) BUN/Creatinine Ratio Glucose Calcium Total Bilirubin AST ALT Alkaline Phosphatase Total Protein Albumin Globulin Albumin/Globulin Ratio TSH Urine Color Yellow Urine Appearance Clear Urine pH 6.5 Ur Specific [place]urd[place] 1.027 Urine Protein Negative Urine Glucose (UA) Negative Urine Ketones Trace H Urine Blood Negative Urine Nitrite Negative Urine Bilirubin Negative Urine Urobilinogen Negative Ur Leukocyte Esterase Negative Salicylates Urine Opiates Screen Neg Ur Methadone, Qual Neg Acetaminophen Urine Barbiturates Neg Ur Phencyclidine (PCP) Neg U Amphetamin/Meth Scrn Neg MDMA (Ecstasy) Screen Neg U Benzodiazepines Scrn Neg Ur Cocaine Metabolite Neg U Marijuana (THC) Screen Neg Ethyl Alcohol mg/dL 01/02/19 01/02/19 01/02/19 23:17 23:17 23:17 WBC RBC Hgb Hct MCV MCH MCHC RDW Std Deviation RDW Coeff of Amberly Plt Count MPV Immature Gran % (Auto) Neut % (Auto) Lymph % (Auto) [place] % (Auto) Eos % (Auto) Baso % (Auto) Immature Gran # (Auto) Neut # (Auto) Lymph # (Auto) [place] # (Auto) Eos # (Auto) Baso # (Auto) Sodium 139 Potassium 3.4 L Chloride 106 Carbon Dioxide 29 Anion Gap 4.0 BUN 16 Creatinine 0.95 Est Cr Clr Drug Dosing 178.8 Est GFR ( Amer) 134.0 Est GFR (Non-Af Amer) 115.6 BUN/Creatinine Ratio 16.8 Glucose 146 H Calcium 8.6 Total Bilirubin 0.2 AST 16 ALT 34 Alkaline Phosphatase 66 Total Protein 6.9 Albumin 3.4 Globulin 3.5 Albumin/Globulin Ratio 1.0 TSH 3.990 Urine Color Urine Appearance Urine pH Ur Specific [place]urd[place] Urine Protein Urine Glucose (UA) Urine Ketones Urine Blood Urine Nitrite Urine Bilirubin Urine Urobilinogen Ur Leukocyte Esterase Salicylates < 1.7 L Urine Opiates Screen Ur Methadone, Qual Acetaminophen < 2 L Urine Barbiturates Ur Phencyclidine (PCP) U Amphetamin/Meth Scrn MDMA (Ecstasy) Screen U Benzodiazepines Scrn Ur Cocaine Metabolite U Marijuana (THC) Screen Ethyl Alcohol mg/dL < 3.0 Hospital Course (1) Suicidal ideations: 01/03 -continue inpatient treatment on an involuntary 302 commitment. -Suicide checks for safety. -Encourage group attendance and participation. -Work on healthy coping skills and discharge safety plan. -Family meeting with parents. 01/04 -Patient is continuing to work in groups on developing more healthy coping skills and a discharge safety plan. -Today, he notes that he did exercise his safety plan by contacting his friend to report that he was having thoughts of suicide. -The patient is in the process of transitioning from male to female and is understandably experiencing certain emotional upheavals within this context. -Today, during the encounter, the patient developed a list of joys and reasons to live. These included the fellowship of his friends, his hope to develop a meaningful and rewarding career, and the hope of eventually developing a stable, supportive romantic relationship. (2) Depression: 01/03 -continue fluoxetine 20 mg daily, as the patient feels this dose is helpful and is unwilling to take a higher dose or consider different medications at this time. He states that his mood episodes recently have lasted 1-3 days, but if low mood persists, would again revisit the option of medication adjustments. -Refer to [facility] for resumption of outpatient treatment. -Coordinate care with PCP in the [place] area, who has been prescribing medication. 01/04 -The patient's concern with psychiatric medications is that they may cause further weight gain and the patient identifies negative body image and obesity as being significant concerns that he feels partially under pens his depression. -The patient identifies been cheating as possibly a coping strategy, and notes that he often eats will be on the point of satiety. He also compensates for binge eating at times by fasting, and notes that his weight has fluctuated over the past few years from as low as 190 pounds up to 280 pounds. We discussed the possibility of medications for binge eating disorder. 01/05 raised prozac to 40mg hs (with 01/05 dose to be 20mg am and 20mg hs ) (3) Anxiety, generalized: 01/03 -see above regarding medications; work on healthy coping skills and behavioral techniques for managing anxiety and refer for outpatient therapy. 01/04 -Today the patient notes that he feels that Prozac has helped with his anxiety. Nevertheless, he is experiencing significant anxiety within the context of his process of transitioning from male to female. 01/05 as above prozac dose raised (4) Binge eating disorder: 01/03 -patient identifies his poor body image and weight as primary stressors and triggers for anxiety and depression. He has never had eating disorder treatment, but would benefit from outpatient treatment including working with a canteen operator and CBT. Explore options for referral, briefly discussed services available at [facility]. He is not interested in anything that involves group therapy. 01/04 -We discussed strategies for treating binge eating disorder. He has not tried stimulant medications, and it was suggested that he may consider discussing this further with his outpatient provider. 01/05 raised prozac to 40mg a day with prozac can help minimize binge cravings and behaviors nasir at higher doses reviewed options of other medications for BED that can consider in future with outpt provider as needed encouraged HEALS program at [facility] as part of aftercare encouraged structured eating and canteen operator appts (as part of HEALS) and encouraged pulling out of restricting behaviors to help minimize binge eating (5) History of hormone replacement therapy: 01/03 -get records for prescribing physician to confirm medications and doses Mental Health & Subst Abuse Tx Psychiatrist Name of Psychiatrist: Jeannine Braov Psychiatrist's Date of Appointment with Psychiatrist: 01/17/19 Time of Appointment with Psychiatrist: 9:00 a.m. Psychiatric Appointment Comment: [address] [facility], [place] Therapist Name of Therapist: Chery Bush Therapist's Time of Therapist Appointment: Will contact you post discharge to schedule Therapy Appointment Comment: [address] [facility], [address], [place] Customs Director Name of Customs Director: [employer] Farida Ann Phone Number for Customs Director: [phone] Date of Appointment with Customs Director: 01/10/19 Time of Appointment with Customs Director: 11:00 a.m. Case Management Appointment Comment: [address] Post Discharge Appointments Primary Care Physician Name Of Family Doctor: [facility] Time of Appointment with PCP: Follow up as regularly scheduled Provider Appointment Comment: [address], [address], [place] [address] Contact Information Discharge Discharge Address: [address] [place] [address] Discharge Plan Discharge Items Reason For Visit: DEPRESSION Discharge Diagnosis: Major Depressive Disorder, Recurrent, Severe; Binge Eating Disorder, Gender Identity Disorder Condition: Good Discharge Goals: Improve disease control and Improve function Activity: Resume your previous activity Non-emergency contact: Primary Care Provider, Psychiatrist and Therapist Call non-emergency contact if: you have any medication questions and your symptoms worsen Follow-up/Referrals: PCP,NO [Primary Care Provider] - Diet: Regular Addtl Provider Instructions: SPECIAL CARE INSTRUCTIONS: 1. Follow through with your scheduled aftercare appointments. If unable to keep an appointment, please call to reschedule. 2. Take your medication only as prescribed. Medication should not be changed or stopped without the approval of your doctor. In the event of worsening symptoms or concerns about side effects, contact your doctor immediately. 3. Utilize new healthy coping skills, anger management skills, and stress management skills learned during your hospitalization. Journal feelings and process them with a support person. Identify stressors or situations that may result in relapse, deterioration or inappropriate behaviors and develop a plan to deal with those issues. 4. If your coping skills are ineffective and you are in crisis, contact your outpatient providers for direction. If unable to reach your providers, please call the CAN HELP LINE AT or go to the closest Emergency Room. 5. Avoid alcohol and un-prescribed drugs. 6. You have been provided with the Mental Health Advance Directives Pamphlet for your review. AFTERCARE APPOINTMENTS: * Please call your insurance company prior to your scheduled appointment to confirm your aftercare providers are covered. Take your insurance information to your appointments. WHO TO CALL AND WHEN: Medical Emergencies: For questions or emergencies related to your hospital stay, please contact the Inpatient Behavioral Health Unit at [phone]. A hub cutter apprentice is on-call 21/11 for the Behavioral Health Unit for emergencies At any time you feel your situation is an emergency, you may also call 911 immediately. Your Doctors Instructions noted above were prepared by provider Jaswinder Coon MD. Prescriptions: New fluoxetine 20 mg Capsule 40 mg PO HS Qty: 60 RF: 0 Continued spironolactone 100 mg Tablet 100 mg PO DAILY RF: 0 estradiol 0.1 mg/24 hr Patch Semiweekly 0.1 mg Transdermal 2XWK RF: 0 Discontinued fluoxetine 20 mg capsule 20 mg PO QAM RF: 0 Skilled Items Patient informed of condition?: Yes Admission Data Admit Date/Time: 01/03/19 06:24 Attending Provider: Jennifer Patel Admit Provider: Geraldine Harrison Primary Care Provider: CHERRY KNIGHT Service: Psychiatry Other Interventions: PSY Interdisciplinary Discharge Planning Last Done: 01/05/19 08:57 Pending Studies at Discharge: No
[2019-01-06] MEDS ORDERED: FLUOXETINE HCL 20 MG CAP PO SCH ×2 (22:00)
== END 2019-01-06 11:35 | disposition home or self-care (01) | DRG 885 ==
LOC: ED 22:33 → 3S 01-03 06:24